=== PATIENT | male | born 1995 | race Two or more races ===

== ENCOUNTER 2024-06-28 08:14 | Outpatient (CLI) | payer BC ==
[2024-06-28 08:44] LABS: BILIRUBIN,URINE NEGATIVE (Neg); CLARITY,URINE CLEAR (Clear); COLOR,URINE YELLOW (Yellow); GLUCOSE, URINE NEGATIVE (Neg); KETONES,URINE NEGATIVE (Neg); LEUKOCYTE ESTERASE ,URINE NEGATIVE (Neg); NITRITES, URINE NEGATIVE (Neg); OCCULT BLOOD,URINE NEGATIVE (Neg); PROTEIN,URINE NEGATIVE (Neg); UROBILINOGEN,URINE 0.2 E.U/dL (0.2-1.0)
[2024-06-28 08:49] LABS: BASOPHILS % (AUTO) 0.7 % (0-1); EOSINOPHILS # (AUTO) 0.1 X10'3 (0-0.9); EOSINOPHILS % (AUTO) 2.4 % (0-6); HEMATOCRIT 44.4 % (42.0-52.0); HEMOGLOBIN 14.9 g/dl (14.0-17.9); LYMPHOCYTES % (AUTO) 35.5 % (21-51); MEAN CORPUSCULAR HEMOGLOBIN 27.9 PG (27.0-31.0); MEAN CORPUSCULAR HGB CONC 33.5 g/dL (33.0-36.5); MEAN CORPUSCULAR VOLUME 83.3 FL (78-98); MEAN PLATELET VOLUME 9.8 FL (7.4-10.4); MONOCYTES # (AUTO) 0.4 X10'3 (0-0.9); MONOCYTES % (AUTO) 6.8 % (2-12); NEUTROPHILS % (AUTO) 54.6 % (42-75); PLATELET COUNT 164 X10'3 (140-440); RED BLOOD COUNT 5.33 X10'6 (4.70-6.10); RED CELL DISTRIBUTION WIDTH 13.5 % (11.5-14.5); WHITE BLOOD COUNT 5.6 X10'3 (4.5-11.0)
[2024-06-28 08:50] LABS: UA COLLECTION TYPE CLN CATCH MIDSTREAM
[2024-06-28 09:20] LABS: ALANINE AMINOTRANSFERASE 104 U/L (12-78); ALBUMIN 4.2 G/DL (3.4-5.0); ALBUMIN/GLOBULIN RATIO 1.1 (1.1-1.5); ALKALINE PHOSPHATASE 107 IU/L (46-116); ANION GAP 6 (8-16); ASPARTATE AMINO TRANSFERASE 32 U/L (10-37); BILIRUBIN,TOTAL 0.4 MG/DL (0.1-1.0); BLOOD UREA NITROGEN 10 MG/DL (7-18); BUN/CREATININE RATIO 13.7 (10.0-20.0); CHLORIDE 105 MMOL/L (99-107); CHOL/HDL RATIO 4.2 (0.00-4.99); CHOLESTEROL 231 MG/DL (0-200); CREATININE 0.73 MG/DL (0.60-1.10); GLUCOSE 95 MG/DL (70-104); HDL CHOLESTEROL 55 MG/DL (35-60); LDL CHOLESTEROL 150 MG/DL (50-100); POTASSIUM 3.9 MMOL/L (3.5-5.1); SODIUM 142 MMOL/L (135-145); TOTAL CARBON DIOXIDE 30.6 MMOL/L (24-32); TOTAL PROTEIN 7.9 G/DL (6.4-8.2); TRIGLYCERIDES 92 MG/DL (20-135); eGFR > 90 ML/MIN
[2024-06-28 09:22] LABS: HEMOGLOBIN A1C 5.3 % (4.5-6.2)
[2024-06-29 06:54] LABS: GAMMA GLUTAMLY TRANSPEPTIDASE 30 IU/L (0-65)
[2024-06-29 08:12] LABS: HBSAG SCREEN Negative (Negative); HEPATITIS C VIRUS ANTIBODY Non Reactive (Non Reactive)
== END 2024-06-28 23:59 | disposition home or self-care (01) ==
LOC: RAD 08:14
PROVIDERS: ATTEND Internal Medicine
DX: R94.5 Abnormal results of liver function studies (principal); Z00.00 Encounter for general adult medical examination without abnormal findings; Z83.3 Family history of diabetes mellitus
CPT/HCPCS: 36415; 76700; 80053; 80061; 81003; 82977; 83036; 85025; 86706; 86803; 87340; 87522

== ENCOUNTER 2024-08-02 12:38 | Emergency (ER) | payer BC ==
[~2024-08-02] VITALS: Ht 162.6 cm; Wt 70.5 kg
[2024-08-02 15:54] VITALS: BP 125/84; PULSE 82; RESP 16; TEMP 98; O2SAT 98
== END 2024-08-02 15:56 | disposition home or self-care (01) ==
LOC: ER 12:39
DX: S62.001A Unspecified fracture of navicular [scaphoid] bone of right wrist, initial encounter for closed fracture (principal); S52.124A Nondisplaced fracture of head of right radius, initial encounter for closed fracture; W01.0XXA Fall on same level from slipping, tripping and stumbling without subsequent striking against object, initial encounter; Y93.02 Activity, running; Y92.89 Other specified places as the place of occurrence of the external cause; Y99.8 Other external cause status
CPT/HCPCS: 29125; 73080; 73110; 73200; 99284; A4565; A6446; A6449

== ENCOUNTER 2024-08-31 12:13 | Outpatient (CLI) | payer BC ==
--- NOTE | 2024-08-31 13:41 | RADIOLOGY REPORT ---
EXAM: DI ELBOW, COMPLETE (3VW MIN) CLINICAL INDICATION: FOLLOW UP RIGHT ELBOW AND WRIST PAIN POST FRACTURE TECHNIQUE: DI ELBOW, COMPLETE (3VW MIN) Comparison: DI WRIST, COMPLETE (3VW MIN) on DOS: 08/02/24, DI ELBOW, COMPLETE (3VW MIN) on DOS: 5 FINDINGS/IMPRESSION: Nondisplaced radial head fracture. Large joint effusion.
--- NOTE | 2024-08-31 13:43 | RADIOLOGY REPORT ---
INDICATION: FOLLOW UP RIGHT ELBOW AND WRIST PAIN POST FRACTURE TECHNIQUE: 4 radiographic views of the rigth wrist were obtained. COMPARISON: DI WRIST, COMPLETE (3VW MIN) on DOS: 08/02/24, DI ELBOW, COMPLETE (3VW MIN) on DOS: 5 FINDINGS: Minimally displaced fracture involving the radial aspect of the scaphoid bone. There is a minimally displaced avulsion fracture involving the ulnar styloid process. Diffuse soft tissue swell ing. IMPRESSION: Minimally displaced fracture involving the radial aspect of the scaphoid bone. There is a minimally displaced avulsion fracture involving the ulnar styloid process. Diffuse soft tissue swelling.
== END 2024-08-31 23:59 | disposition home or self-care (01) ==
LOC: RAD 12:13
PROVIDERS: ATTEND Orthopaedic Surgery
DX: S52.124A Nondisplaced fracture of head of right radius, initial encounter for closed fracture (principal); S52.91XA Unspecified fracture of right forearm, initial encounter for closed fracture; I10 Essential (primary) hypertension; X58.XXXA Exposure to other specified factors, initial encounter; Y93.9 Activity, unspecified; Y92.89 Other specified places as the place of occurrence of the external cause; Y99.8 Other external cause status
CPT/HCPCS: 73080; 73110

== ENCOUNTER 2024-11-17 15:51 | Outpatient (CLI) | payer BC ==
[2024-11-17] MEDS ORDERED: GADOTERATE MEGLUMINE 7.5 MMOL/15 ML VIAL IV ONE (16:46)
--- NOTE | 2024-11-18 06:43 | RADIOLOGY REPORT ---
EXAM: MR MRI HEAD HISTORY: RETROBULBAR NEURITIS, LEFT EYE;VISUAL FIELD DEFECT COMPARISON: Pre and post-contrast MRI of the orbits dated 11/17/2024. TECHNIQUE: Multiplanar multisequence pre and post IV contrast MR images of the brain were performed. 15 mL Clariscan gadolinium contrast were used. FINDINGS: No intracranial mass, midline shift, hydrocephalus, signal abnormalities, or abnormal postc ontrast enhancement. There is small arachnoid cyst in the right middle cranial fossa along the [place] medial margin of the right temporal lobe measuring 19 x 8 mm axially (image 11, series 6). There is a tiny cavum septum pellucidum. The diffusion-weighted images do not demonstrate restricted diffusion. Flow voids are present in the major intracranial vessels. The corpus callosum, sella, pituitary, and craniocervical junction are unremarkable. The optic globes are symmetric. No abnormal fluid or enhan cement about the bilateral optic nerves. There is mild mucosal thickening in the ethmoid sinuses. The bilateral mastoid air cells are clear. IMPRESSION: 1. No evidence of acute infarct or other acute intracranial process. 2. Mild ethmoid sinus disease. 3. 19 mm right middle cranial fossa arachnoid cyst incidentally noted.
--- NOTE | 2024-11-18 07:06 | RADIOLOGY REPORT ---
PROCEDURE: MR MRI ORBITS FACE AND NECK INDICATION: RETROBULBAR NEURITIS, LEFT EYE;VISUAL FIELD DEFECT EXAM DATE: 11/17/2024 04:30 PM COMPARISON: None TECHNIQUE: MRI of the orbits without and with 15 mL Clariscan gadolinium IV contrast. FINDINGS: No masses, signal abnormalities, or abnormal enhancement are identified about the optic nerves, optic chiasm, or orbits. The ocular globes are symmetric. The extraocular eye muscles are intact. There i s a small arachnoid cyst in the right middle cranial fossa along the anterior pole of the right tempo ral lobe. There is mild mucosal thickening of the bilateral ethmoid and maxillary sinuses. IMPRESSION: 1. Mild bilateral maxillary and ethmoid sinus disease. 2. Otherwise unremarkable pre and post contrast MRI of the orbits.
== END 2024-11-17 23:59 | disposition home or self-care (01) ==
LOC: MRI 15:51
PROVIDERS: ATTEND Ophthalmology
DX: J32.0 Chronic maxillary sinusitis (principal); H53.40 Unspecified visual field defects; H46.12 Retrobulbar neuritis, left eye; J32.2 Chronic ethmoidal sinusitis; G93.0 Cerebral cysts
CPT/HCPCS: 70543; 70553; A9575

== ENCOUNTER 2024-11-23 08:03 | Emergency (ER) | payer BC ==
[~2024-11-23] VITALS: Ht 160 cm; Wt 165.9 kg
[2024-11-23] MEDS: ondansetron/PF 4mg/2ml inj IV ONE ×2 (08:26→09:16)
[2024-11-23] MEDS: normal saline 1000ml 1,000 ML IV ONE (08:26)
[2024-11-23 08:34] LABS: MEAN PLATELET VOLUME 10.2 FL (7.4-10.4); RED CELL DISTRIBUTION WIDTH 13.9 % (11.5-14.5)
[2024-11-23 08:38] VITALS: TEMP 98.1
--- NOTE | 2024-11-23 09:09 | Physician Documentation ---
History of Present Illness ~ Chief Complaint: Abdominal Pain w/vomiting Stated Complaint: ABD PAIN VOMITING Time Seen by MD: 08:21 Primary Medical Doctor: NONE Mode of Arrival: Ambulatory HPI 29-year-old male presenting for acute onset of vomiting that started this morning. He states that he has had four episodes of vomiting since about 5:00 a.m. this morning. The emesis is nonbloody. He also endorses some mild pain around his umbilicus. States that yesterday he was feeling fine and went to bed but then this morning this woke him up from sleep. He has also been diaphoretic but denies any yury fevers, chills, diarrhea, constipation or any other associated symptoms. Medication Reconciliation Allergies: Coded Allergies: No Known Allergies (Unverified , 08/02/24) Past Medical History Past Medical History: No Pertinent History Review of Systems All Other Systems at this time: Reviewed and Negative Physical Exam Vital Signs: Temperature: 98.1, Source: Oral, Heart Rate: 79, Respiratory Rate: 14, BP: 120/81, Pulse Oximetry: 99, Weight: 165.900 Oxygen Flow Rate: 0 Physical Exam I have reviewed the triage vitals. CONST: Well developed and well nourished. In no acute distress HENT: Head Atraumatic EYES: Pupils are equal, round and reactive to light. Normal conjunctiva NECK: Normal range of motion. Supple. CARDIO: Normal rate and regular rhythm. No murmurs, rubs, or gallops. S1, S2. PULM/CHEST: No respiratory distress. Lungs clear to auscultation. No wheeze ABD: Soft, slight tenderness to palpation over the periumbilical area. Nondistended. Bowel sounds normal. No guarding. : Exam deferred MSK: No edema. No deformity. NEURO: Alert and oriented to person, place and time. Moving all extremities SKIN: Warm and dry. PSYCH: Normal mood and affect. Good eye contact. Progress Results/Orders Results/Orders Orders - FEI TILLMAN MD Culture Blood (11/23/24 09:06) Ct Abdomen Pelvis (11/23/24 10:36) Completed Orders - FEI TILLMAN MD Urinalysis, Cult If Indicated (11/23/24 08:09) Cbc/Diff (11/23/24 08:09) Ondansetron Inj. (Zofran 4mg/2ml Vial) (11/23/24 08:25) Normal Saline 1000ml (0.9% Sodium Chlori (11/23/24 08:25) CMP (11/23/24 08:47) Lipase (11/23/24 08:47) Lacticsepsis (11/23/24 09:06) Ondansetron Inj. (Zofran 4mg/2ml Vial) (11/23/24 09:10) Medications Received in ER Medications (Trade) Dose Ordered Sig/Keyonna Route PRN Reason Start Time Stop Time Status Last Admin Dose Admin (Zofran 4mg/2ml vial) 4 mg ONCE ONCE IV 11/23/24 08:25 11/23/24 08:26 DC 11/23/24 08:26 4 MG Sodium Chloride 1,000 ml @ 1,000 mls/hr ONCE ONCE IV 11/23/24 08:25 11/23/24 09:24 DC 11/23/24 08:26 1,000 MLS/HR (Zofran 4mg/2ml vial) 4 mg ONCE ONCE IV 11/23/24 09:10 11/23/24 09:11 DC 11/23/24 09:16 4 MG Vital Signs 11/23/24 11/23/24 11/23/24 11/23/24 08:04 08:12 08:38 10:35 Temp 98.1 98.1 Pulse 80 79 74 Resp 18 16 14 18 B/P (MAP) 110/86 120/81 (94) 115/75 (88) Pulse Ox 98 99 98 O2 Flow Rate 0 0 0 Laboratory Tests Test 11/23/24 08:20 11/23/24 09:26 11/23/24 09:36 White Blood Count 12.5 H Red Blood Count 5.33 Hemoglobin 14.9 Hematocrit 44.1 Mean Corpuscular Volume 82.6 Mean Corpuscular Hemoglobin 28.0 Mean Corpuscular Hemoglobin Concent 33.9 Red Cell Distribution Width 13.9 Platelet Count 170 Mean Platelet Volume 10.2 Neutrophils (%) (Auto) 84.9 H Lymphocytes (%) (Auto) 11.7 L Monocytes (%) (Auto) 2.8 Eosinophils (%) (Auto) 0.2 Basophils (%) (Auto) 0.4 Neutrophils # (Auto) 10.6 H Lymphocytes # (Auto) 1.5 Monocytes # (Auto) 0.3 Eosinophils # (Auto) 0.0 Basophils # (Auto) 0.0 CBC Comment Chemistry Comments Urine Specimen Description Voided Urine Color Yellow Urine Clarity Clear Urine pH 6.5 Urine Specific [place] 1.020 Urine Protein Negative Urine Glucose (UA) Negative Urine Ketones Negative Urine Occult Blood Negative Urine Nitrite Negative Urine Bilirubin Negative Urine Urobilinogen 0.2 Urine Leukocyte Esterase Negative Urine Culture Indicated Not ind Volume Urine Centrifuged 10 ml Urine Comment Sodium Level 138 Potassium Level 4.0 Chloride Level 106 Carbon Dioxide Level 23.9 L Anion Gap 8 Blood Urea Nitrogen 13 Creatinine 0.73 Estimated GFR/1.73 m2 > 90 BUN/Creatinine Ratio 17.8 Glucose Level 122 H Lactic Acid Level 1.7 Calcium Level 8.5 Total Bilirubin 0.5 Aspartate Amino Transf (AST/SGOT) 21 Alanine Aminotransferase (ALT/SGPT) 48 Alkaline Phosphatase 108 Total Protein 7.5 Albumin 4.0 Globulin 3.5 Albumin/Globulin Ratio 1.1 Lipase 38 Departure Disposition: 01 HOME / SELF CARE / HOMELESS Impression: Primary Impression: Acute gastroenteritis Condition: Improved Discharge Instructions: Viral Gastroenteritis, Adult, [id number] Referrals: NO PRIMARY CARE PROVIDER (PCP) Signature Scribe Signature: 1 Attestation: 1 FEI TILLMAN MD Nov 23, 2024 09:09
[2024-11-23 09:34] LABS: LEUKOCYTE ESTERASE ,URINE NEGATIVE (Neg); NITRITES, URINE NEGATIVE (Neg); OCCULT BLOOD,URINE NEGATIVE (Neg)
[2024-11-23 09:35] LABS: UA COLLECTION TYPE VOIDED
[2024-11-23 10:05] LABS: CREATININE 0.73 MG/DL (0.60-1.10); TOTAL CARBON DIOXIDE 23.9 MMOL/L (24-32); eCRCL 119 ML/MIN; eGFR > 90 ML/MIN
[2024-11-23 10:35] VITALS: BP 115/75; PULSE 74; RESP 18; O2SAT 98
== END 2024-11-23 11:35 | disposition home or self-care (01) ==
LOC: ER 08:03
DX: K52.9 Noninfective gastroenteritis and colitis, unspecified (principal)
CPT/HCPCS: 36415; 80053; 81003; 83605; 83690; 85025; 87040; 96361; 96374; 96376; 99284; J2405; J7030